=== PATIENT | male | born 1975 | race Caucasian/White ===

== ENCOUNTER 2025-04-17 21:20 | Emergency (ER) | payer OTHER, SELFPAY ==
[2025-04-17 21:32] VITALS: BP 149/94; PULSE 60; RESP 16; TEMP 36.6; O2SAT 100; BMI 29.7
--- NOTE | 2025-04-17 21:41 | DI.RAD.S_ITS ---
PROCEDURE: XR ELBOW LT MIN 3V INDICATIONS: fall TECHNIQUE: 3 views of the elbow were acquired. COMPARISON: None. FINDINGS: Bones: No fractures or dislocations. No suspicious bony lesions. Soft tissues: No elbow joint effusion. No suspicious soft tissue calcifications. IMPRESSION: No visualized acute fracture or dislocation. However, if clinical concern and/or pain persist, short interval imaging followup in 7-10 days is recommended, as occult injury cannot be definitively excluded. Dictated by: Lisy Mohamud M.D. on 04/17/2025 at 22:19 Approved by: Lisy Mohamud M.D. on 04/17/2025 at 22:19
--- NOTE | 2025-04-17 21:41 | DI.RAD.S_ITS ---
PROCEDURE: XR HAND LT MIN 3V INDICATIONS: fall TECHNIQUE: 3 views of the hand(s) acquired. COMPARISON: None. FINDINGS: Bones: No fractures or dislocations. Carpal bones are normally aligned. No suspicious bony lesions. Soft tissues: No suspicious soft tissue calcifications. IMPRESSION: No visualized acute fracture or dislocation. However, if clinical concern and/or pain persist, short interval imaging followup in 7-10 days is recommended, as occult injury cannot be definitively excluded. Dictated by: Lisy Mohamud M.D. on 04/17/2025 at 22:19 Approved by: Lisy Mohamud M.D. on 04/17/2025 at 22:20
--- NOTE | 2025-04-17 21:41 | EKG_ITS ---
[place] [id number] [place] [id number] Test Date: 2025-04-18 Pat Name: Rupesh Fuentes Department: [facility] Room: Gender: Male Silk Conditioner: HEATHER : 1975 Requested By: Order Number: [id number] Reading MD: Nick Colunga Measurements Intervals [place] Rate: 63 P: 5 AK: 166 QRS: -3 QRSD: 86 T: 2 QT: 410 QTc: 419 Interpretive Statements Normal sinus rhythm Possible Inferior infarct , age undetermined Electronically Signed On 04-18-2025 17:28:23 PDT by Nick Colunga
--- NOTE | 2025-04-17 21:41 | DI.RAD.S_ITS ---
PROCEDURE: XR CHEST 2V INDICATIONS: fall, chest pain TECHNIQUE: 2 views of the chest were acquired. COMPARISON: None. FINDINGS: Surgical changes and devices: None. Lungs and pleura: Lungs are clear. No pleural effusions or pneumothorax. Mediastinum: Mediastinal contours are normal. Heart size is normal. Bones and chest wall: No suspicious bony abnormalities. Soft tissues appear unremarkable. IMPRESSION: No acute pulmonary process. Dictated by: Lisy Mohamud M.D. on 04/17/2025 at 22:18 Approved by: Lisy Mohamud M.D. on 04/17/2025 at 22:19
[2025-04-17] MEDS: ACETAMINOPHEN 325 MG TABLET 975 MG PO (21:45)
--- NOTE | 2025-04-17 21:46 | DI.CT.S_ITS ---
PROCEDURE: CT HEAD/BRAIN WO CON INDICATIONS: fall TECHNIQUE: Noncontrast 4.5 mm thick angled axial sections acquired from the foramen magnum to the vertex, with coronal and sagittal reformats. For radiation dose reduction, the following was used: automated exposure control, adjustment of mA and/or kV according to patient size. COMPARISON: [facility], CT, CT CERVICAL SPINE WO CON, 04/17/2025, 21:59. FINDINGS: Image quality: Diagnostic. CSF spaces: Basal cisterns are patent. No extra-axial fluid collections. Ventricles are normal in size and shape. Brain: No midline shift. No intracranial mass effect or hemorrhage. Martinez- white matter interface is normal. Skull and face: Calvarium and visualized facial bones are intact, without suspicious lesions. Sinuses: Visualized sinuses and mastoids are clear. IMPRESSION: No acute intracranial pathology. Dictated by: Lisy Mohamud M.D. on 04/17/2025 at 22:17 Approved by: Lisy Mohamud M.D. on 04/17/2025 at 22:17
--- NOTE | 2025-04-17 21:48 | DI.CT.S_ITS ---
PROCEDURE: CT CERVICAL SPINE WO CON INDICATIONS: fall TECHNIQUE: Noncontrast 3 mm thick sections acquired from the skull base to the T4 level. Sagittal and coronal reformats were then constructed. For radiation dose reduction, the following was used: automated exposure control, adjustment of mA and/or kV according to patient size. COMPARISON: [facility], CT, CT HEAD/BRAIN WO CON, 04/17/2025, 21:59. FINDINGS: Image quality: Excellent. Bones: No fractures or dislocations. Visualized superior ribs are intact. Soft tissues: Prevertebral soft tissues are normal in thickness. No paravertebral hematomas. No apical pneumothoraces. IMPRESSION: No displaced fracture or traumatic subluxation. Dictated by: Lisy Mohamud M.D. on 04/17/2025 at 22:18 Approved by: Lisy Mohamud M.D. on 04/17/2025 at 22:18
[2025-04-17] MEDS: LIDOCAINE 2% (GLYDO) 6 ML GEL TOP (22:00)
--- NOTE | 2025-04-17 22:33 | PC.NURSE ---
Wound irrigates with 250ml NS and betadine, then scrubbed with Hibiclens. Dressed with non-adherent gauze and self-adhesive wrap at this time.
[2025-04-18 01:22] VITALS: BP 139/91; PULSE 80; RESP 18; O2SAT 98
--- NOTE | 2025-04-18 01:45 | ED.FALL ---
HPI - Fall General Chief Complaint: Fall Stated Complaint: fell hit head Lt side hip/elbow, dizzy Time Seen by Provider: 04/18/25 01:32 Source: patient Mode of arrival: Ambulatory History of Present Illness HPI Narrative: This is a 49-year-old male who is previously healthy and not anticoagulated who comes in after falling out of the back of a pickup truck onto the ground. He landed on his left side, reported left-sided chest wall pain he did strike his head also had pain in the left elbow with abrasions and lacerations and left long finger is also feeling sore. He states that after the fall he was feeling lightheaded and felt like he may have passed out for a few sec. He has not had any vomiting he is not having any nausea he is not having any shortness of breath or abdominal pain his tetanus is current. Related Data Allergies Allergy/AdvReac Type Severity Reaction Status Date / Time No Known Drug Allergies Allergy Verified 04/17/25 21:32 Patient History Smoking Status: Never smoker Exam Initial Vital Signs Initial Vital Signs: Vital Signs Temperature 97.9 F 04/17/25 21:32 Pulse Rate 60 04/17/25 21:32 Respiratory Rate 16 04/17/25 21:32 Blood Pressure 149/94 H 04/17/25 21:32 Pulse Oximetry 100 04/17/25 21:32 Oxygen Delivery Method Room Air 04/17/25 21:32 HENMT HENKY Other: Normocephalic and atraumatic Neck Other: Supple with a midline tenderness Chest Other: No abrasions no visible bruising, no crepitance lung sounds are clear and equal Back/Spine/Pelvis Other: No midline tenderness of the cervical thoracic or lumbar spine Skin Other: Warm and dry Neuro Other: Alert and oriented motor is grossly intact Extrem Other: There are abrasions and a superficial laceration to the extensor aspect of the left elbow. There is a small deeper laceration that is not gaping there was no foreign body. None of these wounds appear to require sutures. Motor is intact in the hand sensation is intact in the hand, has some mild diffuse swelling of the left index finger with full flexion extension and no deformity Course Orders Ordered: ED Orders 04/17/25 21:41 CXR [XR chest 2V] Stat XR elbow LT min 3V Stat XR hand LT min 3V Stat EKG-12 Lead Stat 04/17/25 21:46 CT head/brain wo con Stat 04/17/25 21:48 CT cervical spine wo con Stat Discontinued Medications Acetaminophen (Acetaminophen 325 Mg Tablet) 975 mg PO NOW ONE Stop: 04/17/25 21:42 Last Admin: 04/17/25 21:45 Dose: 975 mg Documented By: SANA Lidocaine HCl (Lidocaine 2% (Glydo) 6 Ml Gel) 6 ml TOP NOW ONE Stop: 04/17/25 21:56 Last Admin: 04/17/25 22:00 Dose: 6 ml Documented By: SANA Vital Signs Vital signs: Vital Signs - 8 hr 04/17/25 21:32 04/18/25 01:22 Temperature 97.9 F Pulse Rate 60 80 Respiratory Rate 16 18 Blood Pressure 149/94 H 139/91 H Pulse Oximetry 100 98 Oxygen Delivery Method Room Air Room Air MDM - Fall ECG Data Attestation: I personally reviewed and interpreted this ECG as follows: (Normal sinus rhythm at [address]-elevation possible old inferior infarct) [facility] Narrative Medical decision making narrative: Imaging obtained and personally reviewed by me included CT of the head and cervical spine, chest x-ray, left elbow and left hand. No acute radiographic injury was seen, radiology reports for all of these were reviewed. 49-year-old man previously healthy and not anticoagulated with a fall out of the bed of the pickup truck that was stationary. Had some lightheadedness and near-syncope after this. I think his near syncope was likely vagally mediated, here his vital signs are stable exam is reassuring an EKG shows normal sinus rhythm. No evidence of significant intracranial injury cervical spine injury pneumothorax or rib fracture I considered but do not suspect myocardial contusion, splenic injury, or other major axial trauma. Elbow had good range of motion was negative for fracture on imaging and had wounds that did not require suturing but were closed with Steri-Strips and did not have foreign body. His left long finger was painful but without deformity or loss of function or radiographic abnormality. I recommended [id number]-[id number] analgesia and primary care follow up, indications for return to emergency department were reviewed Discharge Plan Departure Patient Disposition: Home Clinical Impression: Fall Qualifiers: Encounter type: initial encounter Qualified Code(s): W19.XXXA - Unspecified fall, initial encounter Contusion of chest wall Qualifiers: Encounter type: initial encounter Laterality: left Qualified Code(s): S20.212A - Contusion of left front wall of thorax, initial encounter Elbow laceration Qualifiers: Encounter type: initial encounter Laterality: left Qualified Code(s): S51.012A - Laceration without foreign body of left elbow, initial encounter Finger sprain Qualifiers: Encounter type: initial encounter Finger: middle finger Sprain of finger site: unspecified site Laterality: left Qualified Code(s): S63.613A - Unspecified sprain of left middle finger, initial encounter Activity Restrictions/Additional Instructions: Emergency department workup today is reassuring. No serious injuries found. We have applied Steri-Strips to your elbow. Keep these clean and dry they will fall off on their own in a few days. You should cover this arm when you are showering or keep your arm out of the shower. I recommend he use Tylenol and/or ibuprofen as needed for pain, you can take both of these at regular [id number] doses as needed. If you develop difficulty breathing severe headache vomiting abdominal pain or other acute symptoms recheck in the emergency department. Follow up with your primary care provider if you are having any persistent symptoms. Stand Alone Forms: Patient Portal/API
== END 2025-04-18 01:58 | disposition home or self-care (01) ==
PROVIDERS: Emergency Provider Emergency Medicine
DX: S51.012A Laceration without foreign body of left elbow, initial encounter (principal); S20.212A Contusion of left front wall of thorax, initial encounter; S63.613A Unspecified sprain of left middle finger, initial encounter; W19.XXXA Unspecified fall, initial encounter
CPT/HCPCS: 70450; 71046; 72125; 73080; 73130; 93005; 99283; 99284